=== PATIENT | female | born 1955 | race Caucasian/White ===

== ENCOUNTER 2020-05-15 12:33 | Outpatient (REF) | payer OTHER, SELFPAY ==
[2020-05-15 14:16] LABS: Hematocrit 41.3 % (37-47); Hemoglobin 13.2 g/dl (12.0-16.0); Mean Corpuscular Hemoglobin 28.8 pg (27.0-33.0); Mean Corpuscular Volume 90.2 fL (80-98); Mean Platelet Volume 9.8 fL (9.4-12.3); Platelet Count 339 X10*3/uL (160-400); Red Blood Count 4.58 X10*6/uL (4.20-5.50); Red Cell Distribution Width 13.9 % (11.0-16.0); White Blood Count 8.7 X10*3/uL (4.8-10.8)
[2020-05-15 14:48] LABS: Alanine Aminotransferase 15 U/L (0-31); Albumin Level 4.3 g/dL (3.5-5.0); Alkaline Phosphatase 99 U/L (39-117); Anion Gap 13 (12-20); Aspartate Amino Transferase 18 U/L (5-31); Bilirubin Direct 0.2 mg/dL (0.0-0.5); Bilirubin Total 0.6 mg/dL (0.0-1.0); Blood Urea Nitrogen 14 mg/dL (9-16); Calcium 9.4 mg/dL (8.4-10.2); Carbon Dioxide 28 mmol/L (22-29); Chloride 102 mmol/L (96-108); Estimated Glomerular Filt Rate > 60; Glucose Random 90 mg/dL (60-115); Potassium 4.3 mmol/L (3.3-5.1); Sodium 139 mmol/L (135-145); Total Protein 7.2 g/dL (6.5-8.0)
[2020-05-15 15:30] LABS: Erythrocyte Sedimentation Rate 12 MM/HR (0-20)
== END 2020-05-15 12:34 | disposition home or self-care (01) ==
LOC: HO.LAB 12:33
PROVIDERS: Visit Provider Internal Medicine Gastroenterology
DX: K50.10 Crohn's disease of large intestine without complications (principal)
CPT/HCPCS: 36415; 80053; 80076; 82248; 85027; 85652

== ENCOUNTER 2020-05-22 12:39 | Day surgery (SDC) | payer OTHER, SELFPAY ==
--- NOTE | 2020-05-20 14:47 | P.CONAN_ITS ---
Documented by User: Isa Macias 05/21/20 13:13 HPI - Anesthesia Eval Consult details Narrative: 65yo F for Colonoscopy [facility] Past Medical History Medical History Anxiety Crohn's colitis Inflammatory bowel disease Migraine Osteoporosis Spinal stenosis Surgical History Surgical History Hx of colonoscopy Social History Social History Smoking Status: Current every day smoker Use of substances other than those prescribed or required for medical reasons: No Advance Directives: No Advance Directives Information Provided: Yes Meds Allergies Allergy/AdvReac Type Severity Reaction Status Date / Time No Known Allergies Allergy Verified 05/22/20 13:05 Home Medications Medication Instructions Recorded Confirmed Type aspirin-sod bicarb-citric acid 1 tab PO DAILY PRN 05/21/20 05/21/20 History [[place] Original] mesalamine tab PO 05/21/20 History multivitamin 1 tab PO DAILY 05/21/20 05/21/20 History omega-3 fatty acids-vitamin E cap PO DAILY 05/21/20 History [Fish Oil] paroxetine HCl 1 tab PO DAILY 05/21/20 05/21/20 History prednisone tab PO 05/21/20 History sumatriptan succinate 1 tab PO DAILY PRN 05/21/20 05/21/20 History trazodone 1 tab PO BEDTIME 05/21/20 05/21/20 History Exam Exam Date and Time: May 20, 2020 144 Pertinent Lab Results Pertinent Lab Results: Laboratory Tests 05/15/20 05/15/20 12:51 12:51 WBC 8.7 Hgb 13.2 Hct 41.3 Plt Count 339 Sodium 139 Potassium 4.3 Chloride 102 Carbon Dioxide 28 BUN 14 Creatinine 0.74 Assessment and Plan Assessment Anesthesia Assessment: Chart Reviewed Documented by User: Delia Licea 05/22/20 13:51 [facility] Past Medical History Medical History Anxiety Crohn's colitis Inflammatory bowel disease Migraine Osteoporosis Spinal stenosis Surgical History Surgical History Hx of colonoscopy Social History Social History Smoking Status: Current every day smoker Use of substances other than those prescribed or required for medical reasons: No Advance Directives: No Advance Directives Information Provided: Yes Meds Allergies Allergy/AdvReac Type Severity Reaction Status Date / Time No Known Allergies Allergy Verified 05/22/20 13:05 Home Medications Medication Instructions Recorded Confirmed Type aspirin-sod bicarb-citric acid 1 tab PO DAILY PRN 05/21/20 05/21/20 History [[place] Original] mesalamine tab PO 05/21/20 History multivitamin 1 tab PO DAILY 05/21/20 05/21/20 History omega-3 fatty acids-vitamin E cap PO DAILY 05/21/20 History [Fish Oil] paroxetine HCl 1 tab PO DAILY 05/21/20 05/21/20 History prednisone tab PO 05/21/20 History sumatriptan succinate 1 tab PO DAILY PRN 05/21/20 05/21/20 History trazodone 1 tab PO BEDTIME 05/21/20 05/21/20 History Exam Airway Mallampati Class: II TM Dist: >3cm Neck ROM: Full Assessment and Plan Assessment Anesthesia Assessment: Anesthesia Plan Discussed and Chart Reviewed Final Anesthetic Review NPO: Yes ASA Class: II Final Preanesthetic Review: No Changes in Pt Med Stat, Meds/Allgs Chart Reviewed, Consent Obtained/Reviewed and Anes Risks/Benef Reviewed Patient Risk: Low Procedure Risk: Low Assessment/Block/Sedation in SS: Assess/Block/Sedation-SS Anesthetic Plan Anesthetic Plan: MAC: Disposition: Standard PACU
[2020-05-21 11:56] VITALS: BMI 19.5
[2020-05-22 13:08] VITALS: BP 130/94; PULSE 69; RESP 16; TEMP 36.1; O2SAT 99
--- NOTE | 2020-05-22 14:09 | MHC.SHP ---
Pre-Procedural Eval Section A The patient is an INPATIENT: No Changes since office visit: No Cold of Flu in the past 2 weeks, No New Medical Problems, No Changes in Medication and No Patient answered all questions The History & Physical has been completed within 30 days and I have reviewed it.: Yes Section B Chief Complaint: crohn's disease Allergies: Allergies Allergy/AdvReac Type Severity Reaction Status Date / Time No Known Allergies Allergy Verified 05/22/20 13:05 Plan I have reviewed the history and physical and performed a pertinent physical examination on my patient. No changes have occurred unless specified.
[2020-05-22] MEDS: Lactated Ringers 1,000 ML 50 ML IVCONT (14:14)
--- NOTE | 2020-05-22 14:56 | PM.OP ---
Brief Operative Note Date of Service: 05/22/20 Pre-op diagnosis: crohns colitis Post-op diagnosis: same Procedure: colonoscopy Surgeon: Reggie Cabrera Anesthesia: MAC Estimated blood loss (mL): 5 Pathology: none sent (bxs ti and colon) Condition: stable Disposition: PACU
[2020-05-22 14:57] VITALS: BP 110/61; PULSE 68; RESP 16; TEMP 36.1; O2SAT 98
[2020-05-22 15:12] VITALS: BP 114/71; PULSE 61; RESP 16; TEMP 36.1; O2SAT 99
--- NOTE | 2020-05-22 15:26 | OP_ITS ---
SURGEON: Reggie Cabrera MD INDICATIONS: Crohn's colitis. PREOPERATIVE DIAGNOSIS: POSTOPERATIVE DIAGNOSIS: PROCEDURE PERFORMED: Colonoscopy to the terminal ileum with biopsy. ESTIMATED BLOOD LOSS: COMPLICATIONS: ANESTHESIA: ASSISTANTS: SPECIMENS: MEDICATIONS: Monitored anesthesia care. DESCRIPTION OF PROCEDURE: History and physical performed. The risks and benefits of the procedure were explained to the patient. Informed consent was obtained. The patient was placed in the left lateral decubitus position. Digital rectal examination disclosed a possible external fistulous opening on the anterior left aspect of the anal sphincter. No internal masses were palpable. The Olympus video pediatric colonoscope was introduced into the rectum and advanced to the cecum without difficulty. The cecum was identified by transillumination, palpation, and identification of ileocecal valve. Examination was performed and the scope was removed. She tolerated the procedure well and was taken to recovery area in stable condition. FINDINGS: The terminal ileum was examined and appeared normal. This was biopsied. The colon showed punctate areas of erythema with a few superficial areas of ulceration, mainly in the cecum, right colon and transverse colon. The left colon appeared relatively normal. There were other punctate areas in the rectum and retroflexed examination showed some ulceration around the internal aspect of the anal sphincter at the dentate line with approximately less than 5 mm superficial shallow ulcerations, suspicious for Crohn disease involving the anal sphincter. Biopsies were obtained from the right colon, transverse colon, left colon, and rectum as well as the terminal ileum. Retroflexed examination showed no obvious internal fistulous opening. IMPRESSION: Crohn's colitis with question of anal fistula as above. RECOMMENDATIONS: 1. Continue prednisone and Lialda. 2. Follow up the biopsy results. 3. CT imaging is pending. MD LINDA Woodson/CURTIS / [id number]
== END 2020-05-22 15:20 | disposition home or self-care (01) ==
PROVIDERS: Visit Provider Internal Medicine Gastroenterology
PROC: 0DJD8ZZ Inspection of Lower Intestinal Tract, Via Natural or Artificial Opening Endoscopic (ICD-10-PCS; CPT 45378; principal; 2020-05-22 13:50)
DX: K50.10 Crohn's disease of large intestine without complications (principal); Z79.899 Other long term (current) drug therapy; Z79.52 Long term (current) use of systemic steroids
CPT/HCPCS: 45380; 88305

== ENCOUNTER 2020-05-30 10:50 | Outpatient (REF) | payer OTHER, SELFPAY ==
--- NOTE | ~2020-05-30 | CT_ITS ---
EXAMINATION: CT ABDOMEN AND PELVIS WITH CONTRAST CLINICAL INFORMATION: Crohn's disease of the large intestine. COMPARISON: None. TECHNIQUE: Multidetector volumetric images were obtained from the superior aspect of the liver through the pubic symphysis following administration 85 mL of Omnipaque 350 intravenous contrast. Sagittal and coronal reformatted images were obtained on the technologist's workstation. Oral contrast: No Respiratory motion artifact limits evaluation at the level the superior pelvis. This CT examination was performed using dose optimization techniques as appropriate, variously including the following: *Automated exposure control *Adjustment of mA and/or kV according to patient size (this includes techniques or standardized protocols for targeted exams where dose is matched to indication/reason for exam; i.e. extremities or head) *Use of iterative reconstruction technique DLP: 344 mGy-cm FINDINGS: LUNG BASES: The visualized lung bases are unremarkable. LIVER, GALLBLADDER, AND BILIARY TREE: A low-attenuation lesion is seen posteriorly in the right lobe measuring 1.6 cm (image 18, series 3). No other similar lesions are seen. No gallbladder/biliary tree abnormality. PANCREAS: Unremarkable. SPLEEN: Unremarkable. ADRENAL GLANDS: Unremarkable. KIDNEYS AND URETERS: Tiny low-attenuation foci are seen bilaterally that are too small adequately characterize. No nephrolithiasis or hydroureteronephrosis. BLADDER: Unremarkable. GASTROINTESTINAL TRACT: The stomach, small bowel and appendix are unremarkable. Mild to moderate stool seen throughout the colon distally to the rectum. Normal haustration is seen without mural thickening or pericolonic abnormality. The rectum is unremarkable. ABDOMINAL WALL: No significant hernia is appreciated. LYMPH NODES: No lymphadenopathy. VASCULAR: Unremarkable. PELVIC VISCERA: Unremarkable. OSSEOUS STRUCTURES: L4-L5 and L5-S1 mild degenerative disc disease. L4-L5 mild grade [address]/CT abdomen pelvis w con IMPRESSION: 1. Posterior right hepatic low-attenuation lesion is nonspecific on this single phase study. This could represent a hemangioma. Further evaluation with abdominal ultrasound is recommended for additional characterization. If ultrasound findings are equivocal, contrast-enhanced abdominal MRI may be needed. 2. Mild to moderate colonic stool burden without significant abnormality. No evidence for active Crohn's disease. 2. Tiny low-attenuation foci in the kidneys bilaterally are too small adequately characterize, but demonstrate overall benign features and may represent cysts.
[2020-05-30] MEDS: iohexoL 350 MG/ML 100 ML INFUS..BTL IV (12:18)
== END 2020-05-30 10:51 | disposition home or self-care (01) ==
LOC: HO.CT 10:50
PROVIDERS: Visit Provider Internal Medicine
DX: K50.119 Crohn's disease of large intestine with unspecified complications (principal)
CPT/HCPCS: 74177; Q9967

== ENCOUNTER 2020-06-13 09:53 | Outpatient (REF) | payer OTHER, SELFPAY ==
--- NOTE | ~2020-06-13 | US_ITS ---
EXAMINATION: US ABDOMEN LIMITED CLINICAL INFORMATION: Abnormal findings of liver and biliary tract. COMPARISON: CT abdomen and pelvis 05/30/2020. TECHNIQUE: Real-time imaging of the right upper quadrant abdominal viscera. FINDINGS: PANCREAS: Normal. LIVER: The liver is normal in size. The liver contour is normal. Parenchymal echogenicity is normal. There is a 1.5 x 1.2 x 1.6 cm echogenic right hepatic lobe lesion, likely hemangioma or focal fatty infiltration. There is no intrahepatic biliary duct dilatation seen. GALLBLADDER: The gallbladder wall measures 0.18 cm. The gallbladder is physiologically distended without evidence of stones, sludge, polyps, wall thickening or pericholecystic fluid. COMMON BILE DUCT: Normal in caliber measuring 0.5 cm in diameter. RIGHT KIDNEY: There is echogenic lesion in the lower pole measuring 0.5 x 0.5 x 0.5 cm, likely a small angiomyolipoma. A second similar lesion in the midpole measures 0.6 was 0.5 x 0.5 cm. No hydronephrosis or renal calculi. The kidney measures 10.4 cm in maximum dimension. FREE FLUID: None. US/US abdomen limited IMPRESSION: Right hepatic hemangioma versus focal fatty infiltration. Findings are concordant with preceding CT abdomen exam 05/30/2020. 2 angiomyolipomas right kidney. These are not visualized on the preceding CT abdomen exam.
== END 2020-06-13 09:54 | disposition home or self-care (01) ==
LOC: HO.US 09:53
PROVIDERS: Visit Provider Internal Medicine Gastroenterology
DX: R93.2 Abnormal findings on diagnostic imaging of liver and biliary tract (principal)
CPT/HCPCS: 76705